=== PATIENT | male | born 1980 | race Caucasian/White ===

== ENCOUNTER 2019-09-03 22:52 | Observation (INO) | payer OTHER ==
[~2019-09-03] VITALS: Ht 172.7 cm; Wt 69.7 kg
[2019-09-03] MEDS ORDERED: ASPIRIN 81 MG TABLET CHEW ONE (23:28)
[2019-09-03 23:30] LABS: BASOPHILS # (AUTO) 0.03 x10^3/uL (0-0.1); BASOPHILS % (AUTO) 0 % (0-1); EOSINOPHILS # (AUTO) 0.17 x10^3/uL (0-0.4); EOSINOPHILS % (AUTO) 2 % (1-7); LYMPHOCYTES # (AUTO) 2.05 x10^3/uL (1-3.4); LYMPHOCYTES % (AUTO) 26 % (22-44); MD NO; MEAN CORPUSCULAR HEMOGLOBIN 31.9 pg (27.5-34.5); MEAN CORPUSCULAR HGB CONC 34.3 g/dL (33.2-36.2); MEAN CORPUSCULAR VOLUME 92.8 fL (81-97); MEAN PLATELET VOLUME 8.1 fL (7.4-10.4); MONOCYTES # (AUTO) 0.83 x10^3/uL (0.2-0.8); MONOCYTES % (AUTO) 11 % (2-9); NEUTROPHILS # (AUTO) 4.71 x10^3/uL (1.8-6.8); NEUTROPHILS % (AUTO) 60 % (42-75); PLATELET COUNT 223 x10^3/uL (130-400); RED BLOOD COUNT 5.14 x10^6/uL (4.38-5.82); RED CELL DISTRIBUTION WIDTH 12.4 % (9.4-14.8)
[2019-09-03] MEDS ORDERED: ASPIRIN 81 MG TABLET CHEW PO ONE (23:30)
[2019-09-03] MEDS ORDERED: SODIUM CHLORIDE FLUSH 10ML SYR IVF ONE (23:30)
--- NOTE | 2019-09-03 23:38 | NUR ---
"CHEST DISCOMFORT" WITH ASSOSICATED JAW PAIN THAT STARTED AROUND 2100 THIS EVENING. PAIN SCORE WHEN IT STARTED WAS 3/10. NOW PT DENIES PAIN AND RATES CP 0/10. PT ATTACHED TO ALL MONITORS. RESTING COMFORTABLY ON GURNEY.
[2019-09-03 23:42] LABS: ALANINE AMINOTRANSFERASE 31 U/L (12-78); ALBUMIN 4.2 g/dL (3.4-5.0); ANION GAP 4 mmol/L (5-15); CALCIUM 9.3 mg/dL (8.5-10.1); CHLORIDE 108 mmol/L (98-107); CREATININE 1.34 mg/dL (0.7-1.3)
[2019-09-03 23:46] LABS: ALKALINE PHOSPHATASE 81 U/L (45-117)
[2019-09-03 23:50] LABS: TROPONIN I 0.163 ng/mL (0.000-0.045)
--- NOTE | 2019-09-04 00:15 | NUR ---
ER MD IN TO UPDATE ON POC
--- NOTE | 2019-09-04 01:07 | NUR ---
BREAK RN: PT RESTING ON AISHADARIUS. VSS. MED REC COMPLETE. PT HAS NO NEEDS AT THIS TIME. CALL LIGHT IN REACH
[2019-09-04] MEDS ORDERED: LIDODERM 5% PATCH TD PRN (01:30)
[2019-09-04] MEDS ORDERED: TEMAZEPAM 15 MG CAPSULE PO PRN (01:30)
[2019-09-04] MEDS ORDERED: hydrALAzine 20 MG/ML, 1ML IVPush PRN (01:30)
[2019-09-04] MEDS ORDERED: DOCUSATE 100 MG CAPSULE PO PRN (01:30)
[2019-09-04] MEDS ORDERED: ACETAMINOPHEN 325 MG TABLET PO PRN (01:30)
[2019-09-04] MEDS ORDERED: ONDANSETRON ODT 4 MG PO PRN (01:30)
--- NOTE | 2019-09-04 01:37 | NUR ---
report to sarahi wayne
[2019-09-04 01:53] VITALS: BP 125/82
[2019-09-04] MEDS: SODIUM CHLORIDE 0.9% 1,000 ML IV SCH ×2 (01:55→09:04)
[2019-09-04] MEDS: HEPARIN 5,000 UNITS/ML, 1ML SQ SCH ×2 (02:01→10:09)
[2019-09-04 02:31] VITALS: BP 124/82
[2019-09-04 02:37] LABS: TROPONIN I 0.132 ng/mL (0.000-0.045)
[2019-09-04 06:28] LABS: TROPONIN I 0.095 ng/mL (0.000-0.045)
[2019-09-04 07:55] VITALS: BP 114/75
[2019-09-04 14:45] VITALS: BP 125/82
== END 2019-09-04 19:18 | disposition left against medical advice (07) ==
LOC: ED 09-04 00:20 → EDIP 09-04 01:04 → INTOOBSV 09-04 01:04 → 5SO 09-04 01:59
PROVIDERS: ADMIT Family Medicine; ATTEND Internal Medicine
DX: I21.4 Non-ST elevation (NSTEMI) myocardial infarction (principal); N17.0 Acute kidney failure with tubular necrosis; F12.90 Cannabis use, unspecified, uncomplicated; J06.9 Acute upper respiratory infection, unspecified
CPT/HCPCS: 36415; 71046; 80053; 84484; 85025; 87081; 87880; 93005; 93017; 93306; 96372; 99285; G0378; J1644; J7030

== ENCOUNTER → 2019-11-07 | Outpatient (CLI) | payer OTHER | END | disposition home or self-care (01) | LOC: CFH 12:22 | PROVIDERS: ATTEND Internal Medicine Cardiovascular Disease | DX: R07.9 Chest pain, unspecified (principal) | CPT/HCPCS: 78452; 93017; A9502 ==